=== PATIENT | male | born 1990 | race African-American/Black ===

== ENCOUNTER → 2016-09-11 | Emergency (ER) | payer OTHER ==
[~2016-09-11] VITALS: Ht 177.8 cm; Wt 68.0 kg
[~2016-09-11] MED LIST: BACITRACIN ZIN1 EACH TOPIC; Bacitracin Oint UD TOPIC ONE; DiphenhydrAMINE 50mg/ml Inj IM ONE; Haloperidol 5mg/ml Inj IM ONE; LORazepam Inj 2mg/ml 1ml IM ONE
--- NOTE | 2016-09-11 18:49 | Emergency Room Report ---
History of Present Illness General Chief Complaint: Behavioral Complaint Source: Patient, EMS Present Illness HPI Patient is a 26-year-old male who presented after having increased altered mental status and agitation. Patient was brought in by [employer]. The patient was noted to be somewhat agitated. Patient had been placed in a spit rodgers by [employer] as handcuffs. History markedly limited by patient's mental status. Allergies: Coded Allergies: UNABLE TO ASSESS (Unverified , 09/11/16) Patient History Reviewed Nursing Documentation: PMH: Agreed, PSxH: Agreed Nursing Documentation-PMH Past Medical History Deferred: Pt Cognitively Impaired Past Medical History: Deferred Review of Systems All Other Systems: negative except mentioned in HPI Physical Exam Vital Signs Date Time Temp Pulse Resp B/P Pulse Ox O2 Delivery O2 Flow Rate FiO2 09/11/16 18:35 110 20 120/90 99 Room Air Sp02 EP Interpretation: reviewed, normal General Appearance: alert/responsive, no apparent distress, GCS 15, non-toxic Head: atraumatic Eyes: PERRL, lids + conjunctiva normal ENT: hearing intact, no angioedema Neck: supple/symm/no masses, no meningismus Respiratory: effort normal, no wheezing, chest symmetrical Cardiovascular: no edema, other - tachycardia Cardiovascular #2: 2+ carotid (R), 2+ carotid (L), 2+ dorsalis pedis (R), 2+ dorsalis pedis (L) Gastrointestinal: non-tender, no mass, non-distended, no rebound/guarding, normal bowel sounds Musculoskeletal: gait & station normal, strength & tone normal, normal ROM, non -tender Neurologic: oriented x3, sensory intact, normal speech Skin: no rash, well hydrated Lymphatic: normal inspection Medical Decision Making Diagnostic Impression: Primary Impression: Facial abrasion Additional Impression: Behavioral disorder ER Course Patient presented for agitation. Differential diagnoses include substance abuse, psychosis, bipolar disorder, depression, malingering. Patient's benign exam and does not appear to require any further imaging or laboratory testing at this time. Patient was given IM Haldol and Benadryl for agitation. The patient was medically cleared for booking and transport. The patient's tetanus vaccine is up to date. He does not appear to have any significant head trauma at this time.The patient was noted to have been able to follow commands. The patient was cooperative with me throughout her emergency stay Last Vital Signs Date Time Temp Pulse Resp B/P Pulse Ox O2 Delivery O2 Flow Rate FiO2 09/11/16 18:35 110 20 120/90 99 Room Air Status: improved Disposition: HOME, SELF-CARE Condition: Stable Scripts Bacitracin Zinc* (BACITRACIN ZINC*) 1 Each Packet 1 APPLIC TOPIC THREE TIMES A DAY, #30 PACKET Prov: Xavier Dee 09/11/16 Xavier Dee Sep 11, 2016 18:49
[2016-09-11 18:58] VITALS: BP 120/90
[2016-09-11 19:11] VITALS: BP 120/90
== END ==
LOC: EDBD 18:40 → EMR 19:18
DX: S00.81XA Abrasion of other part of head, initial encounter (principal); F91.9 Conduct disorder, unspecified; X58.XXXA Exposure to other specified factors, initial encounter; Y93.9 Activity, unspecified; Y92.9 Unspecified place or not applicable
CPT/HCPCS: 96372; 99283; J1200; J1630

== ENCOUNTER 2018-10-11 11:21 | Emergency (ER) | payer OTHER ==
[~2018-10-11] VITALS: Ht 172.7 cm; Wt 63.5 kg
[~2018-10-11 11:21] MED LIST changes: -Bacitracin Oint UD TOPIC ONE; -DiphenhydrAMINE 50mg/ml Inj IM ONE; -Haloperidol 5mg/ml Inj IM ONE; -LORazepam Inj 2mg/ml 1ml IM ONE
[2018-10-11] MEDS ORDERED: UNOBMED (11:30)
--- NOTE | 2018-10-11 12:00 | NUR ---
ED Nurse Note:pt. was BIBA from the street for psychiatric evaluation, pt. is very calm, not explaining why he needs evaluation, no SI/HI ideations or plan, VSS, blood sent to labs, was told to provide urine for test, his shoes placed in locker#3
[2018-10-11 12:09] LABS: BASOPHILS % (AUTO) 0.9 % (0.0-2.0); EOSINOPHILS % (AUTO) 0.3 % (0.0-3.0); HEMATOCRIT 41.2 % (42.0-52.0); HEMOGLOBIN 14.3 G/DL (14.2-18.0); LYMPHOCYTES % (AUTO) 14.5 % (20.0-45.0); MEAN CORPUSCULAR VOLUME 97 FL (80-99); MONOCYTES % (AUTO) 6.1 % (1.0-10.0); NEUTROPHILS % (AUTO) 78.2 % (45.0-75.0); PLATELET COUNT 235 K/UL (150-450); RED BLOOD COUNT 4.23 M/UL (4.70-6.10); RED CELL DISTRIBUTION WIDTH 11.2 % (11.6-14.8); WHITE BLOOD COUNT 6.6 K/UL (4.8-10.8)
[2018-10-11 12:25] LABS: ANION GAP 9 mmol/L (5-15); BLOOD UREA NITROGEN 17 mg/dL (7-18); CALCIUM 9.7 MG/DL (8.5-10.1); CARBON DIOXIDE 29 MMOL/L (21-32); CHLORIDE 104 MMOL/L (98-107); CREATININE 1.3 MG/DL (0.55-1.30); POTASSIUM 3.5 MMOL/L (3.5-5.1); SODIUM 142 MMOL/L (136-145)
[2018-10-11 12:29] LABS: ALANINE AMINOTRANSFERASE 14 U/L (12-78); ALBUMIN 3.9 G/DL (3.4-5.0); ALKALINE PHOSPHATASE 47 U/L (46-116); ASPARTATE AMINO TRANSFERASE 17 U/L (15-37); BILIRUBIN,TOTAL 0.5 MG/DL (0.2-1.0)
[2018-10-11 12:55] VITALS: BP 128/83
--- NOTE | 2018-10-11 13:27 | NUR ---
ED Nurse Note:urine sent
--- NOTE | 2018-10-11 14:17 | Emergency Room Report ---
History of Present Illness General Chief Complaint: Behavioral Complaint Source: Patient, EMS (Gera Bahena DO) Present Illness HPI Patient presents by paramedics with reports of suicidal thoughts patient reports that he would like a psychiatric evaluation Denies any active plans Patient does report previous psychiatric history however is not able to give specific diagnosis Denies any chest pain denies any abdominal pain denies any back or flank pain (Gera Bahena DO) Allergies: Coded Allergies: No Known Allergies (Unverified , 10/11/18) UNABLE TO ASSESS (Unverified , 09/11/16) Patient History Past Medical History: see triage record Reviewed Nursing Documentation: PMH: Agreed; PSxH: Agreed (Gera Bahena ) Nursing Documentation-PMH History Of Psychiatric Problem: Yes (DoylealbertGera LAMB) Review of Systems All Other Systems: negative except mentioned in HPI (DoylemargauxGera LAMB) Physical Exam Vital Signs Date Time Temp Pulse Resp B/P (MAP) Pulse Ox O2 Delivery O2 Flow Rate FiO2 10/11/18 11:18 97.3 117 16 128/83 (98) 95 Room Air Sp02 EP Interpretation: reviewed, normal General Appearance: well appearing, no apparent distress Head: normocephalic, atraumatic Eyes: bilateral eye PERRL, bilateral eye EOMI ENT: hearing grossly normal, normal pharynx, TMs + canals normal, uvula midline Neck: full range of motion, supple, no meningismus, no bony tend Respiratory: lungs clear, normal breath sounds, no rhonchi, no respiratory distress, no retraction, no accessory muscle use Cardiovascular #1: normal peripheral pulses, regular rate, rhythm, no edema, no gallop, no JVD, no murmur Gastrointestinal: normal bowel sounds, non tender, soft, no mass, no organomegaly, non-distended, no guarding, no hernia, no pulsatile mass, no rebound Genitourinary: no CVA tenderness Musculoskeletal: normal inspection Neurologic: oriented x3, responsive, meat team member III-XII nml as tested, motor strength/ tone normal, sensory intact Psychiatric: other - blunted Affect Skin: no rash Lymphatic: normal inspection, no adenopathy (DoylealbertGera ) Medical Decision Making Homeless Attestation I, The treating physician Dr. Barkley, have assessed and agrees that patient is medically stable for discharge to an outpatient disposition. (Torrey Barkley MD) Diagnostic Impression: Primary Impression: Behavioral change Additional Impression: Substance abuse ER Course Given the patient's history and presentation extensive blood work was obtained for further medical clearance patient does have multidrug positive findings after resting He denies any active suicidal thoughts psychiatric evaluation will be obtained Labs Test 10/11/18 12:00 10/11/18 13:20 White Blood Count 6.6 K/UL (4.8-10.8) Red Blood Count 4.23 M/UL (4.70-6.10) Hemoglobin 14.3 G/DL (14.2-18.0) Hematocrit 41.2 % (42.0-52.0) Mean Corpuscular Volume 97 FL (80-99) Mean Corpuscular Hemoglobin 33.9 PG (27.0-31.0) Mean Corpuscular Hemoglobin Concent 34.7 G/DL (32.0-36.0) Red Cell Distribution Width 11.2 % (11.6-14.8) Platelet Count 235 K/UL (150-450) Mean Platelet Volume 5.8 FL (6.5-10.1) Neutrophils (%) (Auto) 78.2 % (45.0-75.0) Lymphocytes (%) (Auto) 14.5 % (20.0-45.0) Monocytes (%) (Auto) 6.1 % (1.0-10.0) Eosinophils (%) (Auto) 0.3 % (0.0-3.0) Basophils (%) (Auto) 0.9 % (0.0-2.0) Sodium Level 142 MMOL/L (136-145) Potassium Level 3.5 MMOL/L (3.5-5.1) Chloride Level 104 MMOL/L (98-107) Carbon Dioxide Level 29 MMOL/L (21-32) Anion Gap 9 mmol/L (5-15) Blood Urea Nitrogen 17 mg/dL (7-18) Creatinine 1.3 MG/DL (0.55-1.30) Estimat Glomerular Filtration Rate > 60 mL/min (>60) Glucose Level 78 MG/DL (74-106) Calcium Level 9.7 MG/DL (8.5-10.1) Total Bilirubin 0.5 MG/DL (0.2-1.0) Aspartate Amino Transf (AST/SGOT) 17 U/L (15-37) Alanine Aminotransferase (ALT/SGPT) 14 U/L (12-78) Alkaline Phosphatase 47 U/L (46-116) Total Protein 7.7 G/DL (6.4-8.2) Albumin 3.9 G/DL (3.4-5.0) Globulin 3.8 g/dL Albumin/Globulin Ratio 1.0 (1.0-2.7) Salicylates Level 1.9 ug/mL (2.8-20) Acetaminophen Level < 2 MCG/ML (10-30) Serum Alcohol < 3 mg/dL Urine Opiates Screen Negative (NEGATIVE) Urine Barbiturates Screen Negative (NEGATIVE) Phencyclidine (PCP) Screen Negative (NEGATIVE) Urine Amphetamines Screen Positive (NEGATIVE) Urine Benzodiazepines Screen Negative (NEGATIVE) Urine Cocaine Screen Negative (NEGATIVE) Urine Marijuana (THC) Screen Positive (NEGATIVE) (Gera Bahena DO) ER Course Hospital Course 28-year-old male presents ED requesting psychiatric evaluation. No reported SI or HI by patient Patient initially seen and evaluated by Dr. Bahena; please see his note for full history and physical Clinical course Labs reviewed. Drug screen positive for amphetamines and THC On reassessment patient feels better. Is asking to be discharged. Denies SI or HI. Patient not on psychiatric hold. On my evaluation I seen patient is not a danger to self or others. Can be discharged. Homeless checklist completed. Will provide referrals i. I feel this is a highly complex case requiring extensive working including EKG/Rhythm strip, Xray/CT/US, Blood/urine lab work, repeat exams while in ED, and administration of strong opiates/narcotics for pain control, admission to hospital or close patient follow up. Diagnosis - behavioral change, substance abuse Stable and discharged to home. Followup with PMD. Return to ED if symptoms recur or worsen Labs Test 10/11/18 12:00 10/11/18 13:20 White Blood Count 6.6 K/UL (4.8-10.8) Red Blood Count 4.23 M/UL (4.70-6.10) Hemoglobin 14.3 G/DL (14.2-18.0) Hematocrit 41.2 % (42.0-52.0) Mean Corpuscular Volume 97 FL (80-99) Mean Corpuscular Hemoglobin 33.9 PG (27.0-31.0) Mean Corpuscular Hemoglobin Concent 34.7 G/DL (32.0-36.0) Red Cell Distribution Width 11.2 % (11.6-14.8) Platelet Count 235 K/UL (150-450) Mean Platelet Volume 5.8 FL (6.5-10.1) Neutrophils (%) (Auto) 78.2 % (45.0-75.0) Lymphocytes (%) (Auto) 14.5 % (20.0-45.0) Monocytes (%) (Auto) 6.1 % (1.0-10.0) Eosinophils (%) (Auto) 0.3 % (0.0-3.0) Basophils (%) (Auto) 0.9 % (0.0-2.0) Sodium Level 142 MMOL/L (136-145) Potassium Level 3.5 MMOL/L (3.5-5.1) Chloride Level 104 MMOL/L (98-107) Carbon Dioxide Level 29 MMOL/L (21-32) Anion Gap 9 mmol/L (5-15) Blood Urea Nitrogen 17 mg/dL (7-18) Creatinine 1.3 MG/DL (0.55-1.30) Estimat Glomerular Filtration Rate > 60 mL/min (>60) Glucose Level 78 MG/DL (74-106) Calcium Level 9.7 MG/DL (8.5-10.1) Total Bilirubin 0.5 MG/DL (0.2-1.0) Aspartate Amino Transf (AST/SGOT) 17 U/L (15-37) Alanine Aminotransferase (ALT/SGPT) 14 U/L (12-78) Alkaline Phosphatase 47 U/L (46-116) Total Protein 7.7 G/DL (6.4-8.2) Albumin 3.9 G/DL (3.4-5.0) Globulin 3.8 g/dL Albumin/Globulin Ratio 1.0 (1.0-2.7) Salicylates Level 1.9 ug/mL (2.8-20) Acetaminophen Level < 2 MCG/ML (10-30) Serum Alcohol < 3 mg/dL Urine Opiates Screen Negative (NEGATIVE) Urine Barbiturates Screen Negative (NEGATIVE) Phencyclidine (PCP) Screen Negative (NEGATIVE) Urine Amphetamines Screen Positive (NEGATIVE) Urine Benzodiazepines Screen Negative (NEGATIVE) Urine Cocaine Screen Negative (NEGATIVE) Urine Marijuana (THC) Screen Positive (NEGATIVE) (Torrey Barkley MD) Last Vital Signs Date Time Temp Pulse Resp B/P (MAP) Pulse Ox O2 Delivery O2 Flow Rate FiO2 10/11/18 12:55 97.3 83 16 128/83 100 Room Air (Gera Bahena DO) Status: improved (Torrey Barkley MD) Disposition: HOME, SELF-CARE Condition: Stable Referrals: NON PHYSICIAN (PCP) Gera Bahena DO Oct 11, 2018 14:17 Torrey Barkley MD Oct 11, 2018 18:06
[2018-10-11 15:04] VITALS: BP 128/83
--- NOTE | 2018-10-11 15:06 | NUR ---
ED Nurse Note:pt. was cleared for d/c by ER , he was provided with clothes and food, home less d/c forms and mini-cog done, pt. left with steady gait before handed d/c instructions and bus tockens
== END 2018-10-11 14:50 | disposition home or self-care (01) ==
LOC: EDBD 11:21 → EMR 11:54
DX: F15.10 Other stimulant abuse, uncomplicated (principal); F91.9 Conduct disorder, unspecified; F12.10 Cannabis abuse, uncomplicated
CPT/HCPCS: 36415; 80053; 80307; 80329; 85025; 99284